=== PATIENT | female | born 1995 | race Caucasian/White ===

== ENCOUNTER 2017-11-01 18:08 | Inpatient (IN) | payer BC ==
[~2017-11-01] VITALS: Ht 175.3 cm; Wt 108.3 kg
[2017-11-01 18:49] LABS: HEMATOCRIT 41.8 % (36.0-46.0); HEMOGLOBIN 14.2 G/DL (11.9-15.5); MCH 29.6 PG (29.0-34.0); MCV 87.3 FL (83-99); PLATELET COUNT 373 K/uL (156-360); RBC DIS.WIDTH-SD 39.2 % (39-53); RED BLOOD COUNT 4.79 M/uL (3.80-5.20); WHITE BLOOD COUNT 11.4 K/uL (4.1-10.2)
[2017-11-01 19:00] LABS: CHLORIDE 105 mEq/L (99-109); POTASSIUM 4.2 mEq/L (3.7-5.4); SODIUM 139 mEq/L (136-147)
[2017-11-01 19:01] LABS: GLUCOSE 99 mg/dL (70-99)
[2017-11-01 19:05] LABS: CREATININE 0.8 mg/dL (0.6-1.3); GFR ESTIMATE (CALCULATED) > 59 mL/min/; SERUM ETHYL ALCOHOL < 10 mg/dL
[2017-11-01 19:07] LABS: UREA NITROGEN (BUN) 16 mg/dL (9-23)
[2017-11-01 19:09] LABS: ACETAMINOPHEN (TYLENOL) < 10 mcg/mL (10-30); SALICYLATE < 5.0 MG/DL (15-30)
[2017-11-01 19:13] LABS: AMPHETAMINE NEGATIVE (500 ng/mL); BARBITURATES NEGATIVE (200 ng/mL); BENZODIAZEPINES NEGATIVE (150 ng/mL); BUPRENORPHINE NEGATIVE (10 ng/mL); COCAINE NEGATIVE (150 ng/mL); METHADONE NEGATIVE (200 ng/mL); METHAMPHETAMINE NEGATIVE (500 ng/mL); OPIATES (MORPHINE) NEGATIVE (100 ng/mL); OXYCODONE NEGATIVE (100 ng/mL); PHENCYCLIDINE NEGATIVE (25 ng/mL); PROPOXYPHENE NEGATIVE (300 ng/mL); THC CANNABINOIDS NEGATIVE (50 ng/mL); TRICYCLIC ANTIDEPRESSANTS NEGATIVE (300 ng/mL)
[2017-11-02] MEDS ORDERED: SYNTHROID50 MCG PO (00:04)
[2017-11-02] MEDS ORDERED: CELEXA20 MG PO (00:04)
[2017-11-02 00:44] VITALS: BP 140/79
[2017-11-02 08:03] VITALS: BP 147/70
[2017-11-02 15:15] VITALS: BP 145/83
[2017-11-03 09:25] VITALS: BP 131/71
[2017-11-03 16:06] VITALS: BP 122/66
[2017-11-04 07:43] VITALS: BP 152/71
[2017-11-04 16:15] VITALS: BP 135/79
[2017-11-05 07:43] VITALS: BP 133/68
[2017-11-05 15:15] VITALS: BP 140/80
[2017-11-06 07:44] VITALS: BP 143/65
[2017-11-06] MEDS ORDERED: SYNTHROID50 MCG PO (10:12)
[2017-11-06] MEDS ORDERED: CITALOPRAM HBR10 MG PO (10:12)
== END 2017-11-06 11:11 | disposition home or self-care (01) | DRG 885 ==
LOC: EME 18:08 → EDOF 22:16 → 1WEST 22:16 → ENRESERV 11-02 00:13 → 1WEST 11-02 00:14
DX: F33.1 Major depressive disorder, recurrent, moderate (principal); R45.851 Suicidal ideations; F41.0 Panic disorder [episodic paroxysmal anxiety]; E03.9 Hypothyroidism, unspecified; M54.30 Sciatica, unspecified side; E66.3 Overweight; Z59.9 Problem related to housing and economic circumstances, unspecified; Z68.35 Body mass index [BMI] 35.0-35.9, adult
CPT/HCPCS: 80048; 84702; 85027; 90839; 97150 GO; 97165 GO; 99281; 99285; G0480